=== PATIENT | male | born 1955 | race Caucasian/White ===

== ENCOUNTER 2019-11-04 17:02 | Inpatient (IN) | payer BC, OTHER, SELFPAY ==
[~2019-11-04] VITALS: Ht 175.3 cm; Wt 90.6 kg
[2019-11-04 19:13] VITALS: BP 174/92
[2019-11-04] MEDS ORDERED: SERT50TA29 PO (19:58)
[2019-11-04 22:00] VITALS: BP 158/90
[2019-11-04] MEDS ORDERED: ACETAMINOPHEN TAB 650MG DOSE (2X325MG) PO PRN (22:00)
[2019-11-04 23:17] LABS: HEMATOCRIT 44.9 % (42.0-52.0); HEMOGLOBIN 15.3 g/dl (13.5-17.5)
[2019-11-04 23:39] LABS: BLOOD UREA NITROGEN 15 MG/DL (7-18); CALCIUM LEVEL 8.6 MG/DL (8.8-10.2); CARBON DIOXIDE LEVEL 24 MEQ/L (21-32); CHLORIDE LEVEL 110 MEQ/L (98-107); CREATININE FOR GFR 1.02 MG/DL (0.70-1.30); GLOMERULAR FILTRATION RATE > 60.0 (>49); GLUCOSE, FASTING 108 MG/DL (70-100); SODIUM LEVEL 140 MEQ/L (136-145)
[2019-11-05 05:57] LABS: HEMATOCRIT 42.4 % (42.0-52.0); HEMOGLOBIN 14.9 g/dl (13.5-17.5); MEAN CORPUSCULAR HEMOGLOBIN 31.6 pg (27.0-33.0); MEAN CORPUSCULAR HGB CONC 35.1 g/dl (32.0-36.5); MEAN CORPUSCULAR VOLUME 89.8 fl (80.0-96.0); PLATELET COUNT, AUTOMATED 247 10^3/uL (150-450); RED BLOOD COUNT 4.72 10^6/uL (4.30-6.10); WHITE BLOOD COUNT 8.3 10^3/uL (4.0-10.0)
[2019-11-05 06:00] VITALS: BP 130/67
[2019-11-05 06:20] LABS: ALBUMIN 2.9 GM/DL (3.2-5.2); ALT/SGPT 21 U/L (12-78); BILIRUBIN,TOTAL 0.7 MG/DL (0.2-1.0); BLOOD UREA NITROGEN 14 MG/DL (7-18); CALCIUM LEVEL 8.1 MG/DL (8.8-10.2); CARBON DIOXIDE LEVEL 23 MEQ/L (21-32); CHLORIDE LEVEL 112 MEQ/L (98-107); CREATININE FOR GFR 1.02 MG/DL (0.70-1.30); GLOMERULAR FILTRATION RATE > 60.0 (>49); GLUCOSE, FASTING 127 MG/DL (70-100); SODIUM LEVEL 138 MEQ/L (136-145); TOTAL PROTEIN 6.1 GM/DL (6.4-8.2)
--- NOTE | 2019-11-05 07:03 | REPVR ---
PROCEDURE INFORMATION: Exam: US Duplex Bilateral Extracranial Arteries Exam date and time: 11/05/2019 6:21 AM Age: 63 years old Clinical indication: Other: Near syncope TECHNIQUE: Imaging protocol: Real-time Duplex ultrasound scan of the bilateral carotid and vertebral arteries combining boateng scale, color Doppler and spectral waveform analysis. Bilateral exam. COMPARISON: No relevant prior studies available. FINDINGS: Right common carotid artery: Unremarkable. No occlusion or stenosis. Waveforms are normal. Right internal carotid artery: Unremarkable. No occlusion or stenosis. Waveforms are normal. Right ICA/CCA ratio: Within normal limits. Right external carotid artery: No stenosis in the origin. Right vertebral artery: Unremarkable. Antegrade flow Left common carotid artery: Unremarkable. No occlusion or stenosis. Waveforms are normal. Left internal carotid artery: Unremarkable. No occlusion or stenosis. Waveforms are normal. Left ICA/CCA ratio: Within normal limits. Left external carotid artery: No stenosis in the origin. Left vertebral artery: Unremarkable. Antegrade flow. IMPRESSION: No carotid arterial stenosis. REFERENCE: Carotid Stenosis Reference using SRU criteria: Mild: less than 50% stenosis. ICA PSV is less than 125 cm/second and plaque or intimal thickening is visible. Moderate: 50-69% stenosis. ICA PSV is 125 to 230 cm/second and plaque is visible. Severe: 70-94% stenosis. ICA PSV is more than 230 cm/second and visible plaque and lumen narrowing are seen. Near occlusion: 95-99% stenosis. ICA PSV is variable and significant plaque and luminal narrowing are seen. Occluded: 100% stenosis. No flow identified. Electronically signed by: Tavares Mchugh On 11/05/2019 07:03:19 AM
--- NOTE | 2019-11-05 08:04 | HPE ---
DATE OF ADMISSION: 11/04/2019 CHIEF COMPLAINT: Lightheadedness. HISTORY OF PRESENT ILLNESS: This is a 63-year-old active male who was at home when he had an acute onset of a nosebleed from his right naris. He has a history of nosebleeds in the past, but not as bad as this particular one. He had played hockey four days ago. He was checked by another player, he had no injury to his nose, but his head did snap back. He was complaining of mild posterior neck pain. The patient states that the nosebleed started spontaneously, it was gushing. They called emergency medical services (EMS) who was unable to stop the bleeding. The patient came to the emergency room. Upon arrival, blood pressure was 170/64, heart rate was 51, respirations were 18, and oxygen saturation was 98% on room air. The patient had an EKG done that showed sinus rhythm with a rate of 49. Chest x-ray was done which showed no acute disease. CT of the face, maxillofacial was done which showed no acute changes. No fractures present. CT maxillofacial no facial bone fractures, no orbital injuries. There was a left nasal septal spur. No deviation of the nasal septum. No nasal bone fracture. CT of the head without contrast showed no acute intracranial process. CT of the cervical spine mild degenerative changes. Straightening of the normal cervical lordosis. No fracture. Laboratory studies showed a white count was normal at 9.2, hemoglobin 16.1, hematocrit 47.8, platelets were 287. Electrolytes were normal. Nonfasting blood sugar was 114. BUN was 13, creatinine 0.9. Lactic acid was 2.5. ProTime was 12.7, INR was 0.94, PTT was 27.2. Troponin was less than 0.01. The patient was noted to have bleeding from the right naris. A nasal Rhino Rocket balloon was placed without complication. The patient was prepared for discharge home and when he stood up he felt slight lightheadedness. He had some bleeding from the right naris, it was controlled and hemostasis was achieved after one spray of Breezy-Synephrine and packed with a Rhino Rocket. The patient remained bradycardic in the 40s. There was concern that the bradycardia was symptomatic. The outlying hospital provider contacted hospitalist here at [facility] and the patient was accepted in transfer for further workup for bradycardia and ENT if needed. The patient arrived without complication to [facility] as a direct admit to the medical surgical floor on telemetry. Patient currently denies any lightheadedness. Rhino Rocket remains in place. No bleeding is noted. Telemetry was placed, showed sinus bradycardia at 48. Assessment was done and the patient will be admitted to observation status to the service of Dr. Platt for further workup for near syncope, bradycardia and nosebleed with Rhino Rocket in place. ALLERGIES: No known drug allergies. PRIMARY CARE PROVIDER: Dr. Little SOCIAL HISTORY: He is . He has a significant other and is currently engaged. EtOH none. Smokes none. Recreational drug use none. PAST MEDICAL HISTORY: Depression. Benign prostatic hypertrophy (BPH). PAST SURGICAL HISTORY: He has had a fractured nose times four with surgical repair times two. Colonoscopy. Lithotripsy for kidney stone. As a child he had a tumor removed from his back, which was benign. FAMILY HISTORY: Father is age 85 of cancer. He believes it was colon cancer. Mother, 87, from complications of an incarcerated hernia. HOME MEDICATIONS: - sertraline 50 mg by mouth daily REVIEW OF SYSTEMS: No complaint of headache. No blurred or double vision. No fever, no chills. No tinnitus. No hoarseness. No difficulty swallowing. Very short episode, less than 1-2 minutes of lightheadedness while at the emergency room in [place]. None currently. CARDIOVASCULAR: No complaints of chest pain, shortness of breath (SOB), palpitations or edema. RESPIRATORY: No chronic cough. No sputum production. No hemoptysis. No orthopnea. No wheeze. GASTROINTESTINAL (GI): Occasional "heartburn." No complaints of abdominal pain. No hematochezia. No melena. No nausea, vomiting, or diarrhea. GENITOURINARY (): No hematuria, dysuria or frequency. MUSCULOSKELETAL: No joint redness or swelling. ENDOCRINE: No polyuria, polydipsia, or polyphagia. HEMATOLOGICAL: No history of anemia. NEUROLOGICAL: No history of seizures. No paresthesias or paralysis. PSYCHOLOGICAL: History of depression. No suicidal ideation. PHYSICAL EXAMINATION: Patient is alert and oriented times three. Height 69 inches, weight 90.6 kg, body mass index (BMI) 29.5, blood pressure 158/90, pulse 53, respirations 18, temperature 97.6, oxygen saturation 98% on room air. Pupils equal and reactive to light. Extraocular muscles intact. Cornea and sclerae are clear. Conjunctivae are normal. No facial asymmetry. Rhino Rocket in place in right nostril. Tympanic membranes pearly bilaterally. Pharynx, tongue and gums are pink and moist. Tongue is midline. Neck is supple without lymphadenopathy. No thyromegaly. No goiter. Carotids are 2+ without bruit. Chest clear to auscultation without wheeze or retraction. Heart is regular without murmur or gallop. Abdomen is benign. Bowel sounds are positive. /rectal not done. Extremities show equal strength. Full range of motion. No cyanosis, clubbing or edema. Peripheral pulses equal and palpable bilaterally. Cranial nerves III through XII grossly intact. IMPRESSION/PLAN: 1. Lightheadedness, near syncopal episode. Probably secondary to nosebleed and recent placement of Rhino Rocket. CT negative. Will get carotid ultrasound. Consider cardiology consult and probably outpatient cardiac followup. 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 EKG bradycardia. 2. Right epistaxis with Rhino Rocket in place. Currently no further bleeding. Will get a stat hemoglobin and hematocrit. Consider ENT consult, inpatient or outpatient followup. Monitor hemoglobin and hematocrit and CBCs. 3. Hypertension. Currently 158/90, may be secondary to Rhino Rocket placement and discomfort. Will monitor closely, may need antihypertensive. 4. Depression. Continue sertraline. 5. Deep vein thrombosis (DVT) prophylaxis. Early ambulation, thromboembolic deterrent stockings (TEDS), Patient will be admitted to observation status on remote telemetry.
[2019-11-05] MEDS ORDERED: SERTRALINE HCL 50 MG TAB PO SCH (09:00)
[2019-11-05 10:00] VITALS: BP 154/84
--- NOTE | 2019-11-05 10:35 | IPNPDOC ---
Subjective Date Seen The patient was seen on 11/05/19. Subjective Chief Complaint/HPI Rhino viviana fell out last night has not had any recurrent epistaxis. No lightheadedness with activity this morning. Asymptomatic bradycardia on tele. Objective Physical Examination General Exam: Positive: Alert, No Acute Distress Eye Exam: Positive: PERRLA, Conjunctiva & lids normal, EOMI; Negative: Sclera icteric ENT Exam: Positive: Atraumatic, Mucous membr. moist/pink, Pharynx Normal, Nares Patent (no bleeding) Neck Exam: Positive: Supple; Negative: JVD, thyromegaly Chest Exam: Positive: Clear to auscultation, Normal air movement Heart Exam: Positive: Rate Normal, Regular Rhythm, Normal S1, Normal S2; Negative: Murmurs, Rubs Telemetry: Positive: No significant arrhythmia Abdomen Exam: Positive: Normal bowel sounds, Soft; Negative: Tenderness, Hepatospenomegaly Male Exam: Positive: Normal Genital Exam Extremity Exam: Positive: Normal pulses; Negative: Clubbing, Cyanosis, Edema Skin Exam: Positive: Nl turgor and temperature; Negative: Rash, Breakdown Neuro Exam: Positive: Normal Gait, Normal Speech, Cranial Nerves 3-12 NL, Ref lexes 2+ Psych Exam: Positive: Mental status NL, Mood NL, Oriented x 3 Assessment /Plan Assessment # Asymptomatic bradycardia # Epistaxis # transient HTN Plan: - TSH normal - home today - f/u with PCP in 1-2 week for BP check Plan/VTE VTE Prophylaxis Ordered?: No (epistaxis) VS, I&O, 24H, Fishbone Vital Signs/I&O Vital Signs Date Time Temp Pulse Resp B/P (MAP) Pulse Ox O2 Delivery O2 Flow Rate FiO2 11/05/19 10:00 97.6 48 20 154/84 (107) 96 Room Air I&O- Last 24 Hours up to 6 AM 11/05/19 06:00 Intake Total 300 ml Output Total 425 ml Balance -125 ml Laboratory Data 24H LABS Laboratory Tests 2 11/04/19 23:11: Anion Gap 6L, Glomerular Filtration Rate > 60.0, Calcium Level 8.6L 11/05/19 05:34: Anion Gap 3L, Glomerular Filtration Rate > 60.0, Calcium Level 8.1L, Nucleated Red Blood Cells % (auto) 0.0, Total Bilirubin 0.7, Aspartate Amino Transf (AST/SGOT) 12, Alanine Aminotransferase (ALT/SGPT) 21, Alkaline Phosphatase 81, Total Protein 6.1L, Albumin 2.9L, Albumin/Globulin Ratio 0.91L, Thyroid Stimulating Hormone (TSH) 1.290 CBC/BMP Laboratory Tests 11/04/19 23:11 11/05/19 05:34 CHALINO RAI MD Nov 05, 2019 10:35
--- NOTE | 2019-11-06 07:45 | ECGEPIP ---
[facility] Test Date: 2019-11-04 Pat Name: CHAO DELGADO Department: Room: [place] [address] Gender: Male Installation Manager: ATUL : 1955 Requested By: Sonal Chapin [facility] Order Number: [id number] Reading MD: Johan Shukla Measurements Intervals [place] Rate: 60 P: 199 [place]: 177 QRS: -28 QRSD: 95 T: -20 QT: 399 QTc: 399 Interpretive Statements normal sinus rhythm LA conduction disturbance Left axis deviation. Incomplete RBBB Nonspecific ST/T wave abnormalities No prior tracing for comparison. Clincal correlation advised Electronically Signed on 11-06-2019 7:45:13 EST by Johan Shukla
--- NOTE | 2019-11-06 19:34 | DSES ---
DATE OF ADMISSION: 11/04/2019 DATE OF DISCHARGE: 11/05/2019 DISCHARGE DIAGNOSES: 1. Asymptomatic bradycardia. 2. Right nares epistaxis, resolved. 3. Transient hypertension. Procedures performed during this hospitalization were none. Consultants on the case were none. DISPOSITION: The patient will be discharged home. Pending laboratories at discharge are none. DISCHARGE INSTRUCTIONS: The patient is instructed to monitor his blood pressures at home and to followup with his primary care provider (PCP) in the next week to see if he may need to be placed on medications. He is to return to the emergency room (ER) or contact his PCP should he have any further epistaxis or uncontrolled high blood pressure. CONDITION ON DISCHARGE: Improved from admission. RELEVANT LABORATORY DATA: White count is 8.3, hemoglobin is 14.9, hematocrit 42, platelet count is 247. Sodium 138, potassium 4, chloride 112, bicarbonate 23, anion gap is 3, BUN is 14, creatinine is 1, glucose is 127, calcium is 8.1, AST is 12, ALT is 21, alkaline phosphatase is 81, TSH is 1.29. IMAGING STUDIES: Carotid Dopplers which did not show any evidence of arterial stenosis. DISCHARGE MEDICATIONS: Are the following sertraline 50 mg daily. HOSPITAL COURSE: Mr. Palacios is a 63-year-old gentleman who developed epistaxis of his right nares. He presented to [facility] where he had nasal packing placed. Apparently when he stood up from a lying to a standing position, he felt some lightheadedness and they noticed that he had some bradycardia so they become concerned about that and transferred him to our hospital at [facility] for further evaluation. Here, the patient was noted to be in asymptomatic bradycardia. His epistaxis ceased. He actually had his nasal packing fall out and was evaluated in the middle of the night by the industrial maintenance repairer helper who felt that it did not need to go back in. His hemoglobin was repeated and was found to be stable. He was discharged home in stable condition. A carotid Doppler was obtained during his stay but this did not show any evidence of carotid stenosis. As the patient is self-pay, an echocardiogram was not ordered. He was recommended to followup with his primary care provider for this. A total of 30 minutes was spent completing all discharge paperwork.
== END 2019-11-05 11:30 | disposition home or self-care (01) | DRG 115 ==
LOC: M MSPAV 19:13
PROVIDERS: ADMIT Internal Medicine; ATTEND Internal Medicine
DX: R04.0 Epistaxis (principal); I10 Essential (primary) hypertension; R00.1 Bradycardia, unspecified; N40.0 Benign prostatic hyperplasia without lower urinary tract symptoms; F32.9 Major depressive disorder, single episode, unspecified